=== PATIENT | male | born 1970 | race African-American/Black ===

== ENCOUNTER 2018-01-13 11:22 | Inpatient (IN) | payer MEDICAID, OTHER ==
[~2018-01-13] VITALS: Ht 172.7 cm; Wt 69.1 kg
[2018-01-13] MEDS ORDERED: MORPHINE SULFATE 4 MG/ML CPJ (NOT FOR IM USE) IV STA (12:18)
[2018-01-13 12:53] LABS: BASOPHILS % 0.5 % (0.0-2.0); EOSINOPHILS % 3.4 % (0.0-5.0); HEMATOCRIT. 32.5 % (42.0-52.0); LYMPHOCYTES % 28.8 % (20.0-50.0); MEAN CORPUSCULAR HEMOGLOBIN 23.4 pg (28.0-32.0); MEAN CORPUSCULAR VOLUME 75.9 fL (80.0-94.0); MEAN PLATELET VOLUME 9.8 fl (7.4-10.4); MONOCYTES % 11.7 % (2.0-8.0); NEUTROPHILS % 55.6 % (40.0-76.0); PLATELET 174 x1000/uL (130-400); RED BLOOD CELL COUNT 4.28 mill/uL (4.7-6.1); RED CELL DISTRIBUTION WIDTH 15.2 % (11.6-14.6)
[2018-01-13 13:04] LABS: CHLORIDE 103 mEq/L (98-107)
[2018-01-13] MEDS ORDERED: DEXTROSE 50% WATER 50ML SYRINGE IV ONE (15:15)
[2018-01-13] MEDS ORDERED: INSULIN REGULAR (HUMULIN R) 300UNITS/3ML IV ONE (15:15)
[2018-01-13] MEDS ORDERED: SODIUM POLYSTYRENE SULFONATE 15 G/60 ML BOT PO ONE (15:15)
[2018-01-13] MEDS ORDERED: ASPIRIN 81MG TABLET PO ONE (15:15)
[2018-01-13] MEDS ORDERED: LORAZEPAM 0.5MG TABLET PO PRN (17:00)
[2018-01-13] MEDS ORDERED: MAGNESIUM/ALUMINUM HYDROXIDE/SIMETHICONE 30ML UDC PO PRN (17:00)
[2018-01-13] MEDS ORDERED: IPRATROPIUM/ALBUTEROL 0.5-3(2.5)MG/3ML NEB INH PRN (17:00)
[2018-01-13] MEDS ORDERED: TRAMADOL 50MG TABLET PO PRN (17:00)
[2018-01-13] MEDS ORDERED: GUAIFENESIN 200MG/10ML SUGAR FREE UDC PO PRN (17:00)
[2018-01-13] MEDS ORDERED: DOCUSATE SODIUM 100MG CAPSULE PO PRN (17:00)
[2018-01-13] MEDS ORDERED: ONDANSETRON HCL 4MG/2ML INJ IV PRN (17:00)
[2018-01-13] MEDS ORDERED: ACETAMINOPHEN 325MG TABLET PO PRN (17:00)
[2018-01-13] MEDS ORDERED: NITROGLYCERIN 0.4MG TABLET SL SL PRN (17:00)
[2018-01-13] MEDS ORDERED: ZOLPIDEM TARTRATE 5MG TABLET PO PRN (21:00)
[2018-01-13 21:40] VITALS: BP 213/108
[2018-01-13 21:42] VITALS: BP 213/108
[2018-01-13] MEDS: CLONIDINE 0.1MG TABLET PO PRN (22:06)
[2018-01-13 23:09] VITALS: BP 181/95
[2018-01-14] VITALS: BP 173/97
[2018-01-14 00:07] LABS: CREATINE KINASE MB FRACTION 1.3 ng/mL (0.5-3.6)
[2018-01-14 02:42] VITALS: BP 162/106
[2018-01-14 03:49] VITALS: BP 172/103
[2018-01-14] MEDS: CLONIDINE 0.1MG TABLET PO PRN ×2 (04:46→14:03)
[2018-01-14] MEDS: SUCRALFATE 1 G/10 ML UDC PO SCH ×3 (06:26→18:05)
[2018-01-14 07:26] LABS: CREATINE KINASE MB FRACTION 1.2 ng/mL (0.5-3.6)
[2018-01-14] MEDS: SEVELAMER CARBONATE 800 MG TABLET PO SCH ×3 (08:46→18:05)
[2018-01-14] MEDS ORDERED: AMLODIPINE 10MG TABLET PO SCH (09:00)
[2018-01-14] MEDS ORDERED: ASPIRIN 325MG EC TABLET PO SCH (09:00)
[2018-01-14] MEDS ORDERED: FAMOTIDINE 20MG TABLET PO SCH (09:00)
[2018-01-14] MEDS ORDERED: ENOXAPARIN 30MG/0.3ML SYR SUBCUT SCH (09:00)
[2018-01-14] MEDS ORDERED: FOLIC ACID/VITAMIN B COMP W-C TABLET PO SCH (09:00)
[2018-01-14 12:00] VITALS: BP 158/95
[2018-01-14] MEDS ORDERED: HEPARIN SODIUM 1,000 UNIT/1ML VIAL IV SCH (12:45)
[2018-01-14 16:00] VITALS: BP 132/82
[2018-01-14 17:45] VITALS: BP 132/82
== END 2018-01-14 18:56 | disposition home or self-care (01) | DRG 241 ==
LOC: ER 12:00 → 6WST 15:44 → EDBEDREQTM 15:54 → EDBEDREQ 15:54 → ENRESERV 20:26
PROVIDERS: ADMIT Internal Medicine; ATTEND Internal Medicine
DX: K29.70 Gastritis, unspecified, without bleeding (principal); E11.22 Type 2 diabetes mellitus with diabetic chronic kidney disease; I13.11 Hypertensive heart and chronic kidney disease without heart failure, with stage 5 chronic kidney disease, or end stage renal disease; N18.6 End stage renal disease; E87.5 Hyperkalemia; D63.8 Anemia in other chronic diseases classified elsewhere; E78.5 Hyperlipidemia, unspecified; I16.0 Hypertensive urgency; N25.81 Secondary hyperparathyroidism of renal origin; Z91.14 Patient's other noncompliance with medication regimen; Z99.2 Dependence on renal dialysis; Z82.49 Family history of ischemic heart disease and other diseases of the circulatory system
CPT/HCPCS: 36415; 71045; 74176; 82550; 82553; 82962; 83036; 83605; 83880; 84484; 93005; 96374; 99285; J1644; J1650; J1815; J2270

== ENCOUNTER 2023-06-16 10:48 | Inpatient (IN) | payer MEDICARE, MEDICAID ==
[~2023-06-16] VITALS: Ht 172.7 cm; Wt 73.5 kg
[~2023-06-16 10:48] MED LIST: ASPI-1406 PO; CALC667T2 PO; LABE300T36 PO; LIP40 PO; MECL-127 PO; MINO2.5T2 MT
[2023-06-16 11:43] LABS: EOSINOPHILS % 3.1 % (0.0-5.0); HEMATOCRIT. 36.1 % (42.0-52.0); HEMOGLOBIN. 11.3 g/dL (14.0-18.0); LYMPHOCYTES % 53.9 % (20.0-50.0); MEAN CORPUSCULAR HGB CONC 31.4 g/dL (31.0-37.0); MEAN CORPUSCULAR VOLUME 73.2 fL (80.0-94.0); MONOCYTES % 8.9 % (2.0-8.0); NEUTROPHILS % 33.1 % (40.0-76.0); RED BLOOD CELL COUNT 4.93 mill/uL (4.7-6.1); RED CELL DISTRIBUTION WIDTH 17.3 % (11.6-14.6); WHITE BLOOD COUNT 6.2 x1000/uL (4.5-11.0)
[2023-06-16 11:57] LABS: DIFFERENTIAL COMMENT 1
[2023-06-16 12:08] LABS: ALANINE AMINOTRANSFERASE 13 IU/L (10-49); ALBUMIN 4.6 g/dL (3.2-4.8); ASPARTATE AMINOTRANSFERASE 24 IU/L (<34); BILIRUBIN TOTAL 0.9 mg/dL (0.1-1.0); CALCIUM 9.8 mg/dL (8.7-10.4); CARBON DIOXIDE 31 mEq/L (21-32); CHLORIDE 96 mEq/L (98-107); GLUCOSE 73 mg/dL (70-105); PROTEIN TOTAL 8.4 g/dL (6.0-8.3); SODIUM 137 mEq/L (136-145); UREA NITROGEN BLOOD 25 mg/dL (9-23)
[2023-06-16 12:31] LABS: CREATININE 8.4 mg/dL (0.6-1.3); TROPONIN I HIGH SENSITIVITY 101 ng/L (3.0-53)
[2023-06-16 12:43] LABS: PROTHROMBIN TIME 10.9 sec (9.6-11.0)
[2023-06-16] MEDS: ASPIRIN 325MG EC TABLET PO NR (13:59)
[2023-06-16] MEDS: ENOXAPARIN 80MG/0.8ML SYR SUBCUT SCH ×2 (14:00→20:43)
[2023-06-16 14:30] LABS: MEAN PLATELET VOLUME 9.9 fl (7.4-10.4)
[2023-06-16 14:37] LABS: PLATELET 119 x1000/uL (130-400)
[2023-06-16 15:09] LABS: TROPONIN I HIGH SENSITIVITY 128 ng/L (3.0-53)
[2023-06-16] MEDS ORDERED: ACETAMINOPHEN 325MG TABLET PO PRN ×2 (17:00)
[2023-06-16] MEDS ORDERED: ONDANSETRON HCL 4MG/2ML INJ IV PRN (17:00)
[2023-06-16] MEDS ORDERED: IPRATROPIUM/ALBUTEROL 0.5-3(2.5)MG/3ML NEB HHN PRN (17:00)
[2023-06-16] MEDS ORDERED: CLONIDINE 0.1MG TABLET PO PRN (17:00)
[2023-06-16] MEDS ORDERED: NITROGLYCERIN 0.4MG TABLET SL SL PRN (17:00)
[2023-06-16] MEDS ORDERED: FOLI1TAB87 PO (17:12)
[2023-06-16] MEDS: MINOXIDIL 2.5MG TABLET PO SCH (17:32)
[2023-06-16] MEDS: LABETALOL HCL 200MG TABLET PO SCH (17:33)
[2023-06-16] MEDS: CLONIDINE 0.2MG TABLET PO SCH (17:33)
[2023-06-16] MEDS: CALCIUM ACETATE 667MG CAPSULE PO SCH (17:33)
[2023-06-16 17:49] LABS: CHOLESTEROL 206 mg/dL (<200); HDL CHOLESTEROL 72 mg/dL (>55); IRON 110 ug/dL (65-175); LDL CHOLESTEROL 106 mg/dL (5-100); PHOSPHORUS 2.7 mg/dL (2.5-4.9); TOTAL IRON BINDING CAPACITY 112 ug/dl (250-425); TRIGLYCERIDE 97 mg/dL (0-150)
[2023-06-16] MEDS: HYDRALAZINE 20MG/ML VIAL IV NR (18:13)
[2023-06-16] MEDS ORDERED: HYDRALAZINE 20MG/ML VIAL IV PRN (19:15)
[2023-06-16 19:45] LABS: T4 FREE 1.2 ng/dL (0.89-1.76); THYROID STIMULATING HORMONE 1.08 uIU/mL (0.55-4.78)
[2023-06-16 20:00] VITALS: BP 160/71; PULSE 136; RESP 19; TEMP 98.3
[2023-06-16 20:01] LABS: D-DIMER 1.63 mg/L FEU (<0.50)
[2023-06-16] MEDS: ATORVASTATIN CALCIUM 40MG TABLET PO SCH (20:42)
[2023-06-16] MEDS: DOCUSATE SODIUM 100MG CAPSULE PO PRN (20:43)
[2023-06-16 23:29] VITALS: BP 160/71; PULSE 135; RESP 19; TEMP 98.3
[2023-06-17] VITALS (9 sets, daily range): BP systolic 138–158; BP diastolic 69–110; PULSE 80–134; RESP 14–20; TEMP 97.8–98.3
[2023-06-17 00:05] LABS: CREATINE KINASE MB FRACTION 1.4 ng/mL (0.5-3.6)
[2023-06-17] MEDS: LABETALOL HCL 100MG TABLET PO NR (00:41)
[2023-06-17 00:47] LABS: HEPATITIS B SURFACE ANTIGEN NEGATIVE (Negative); HEPATITIS C AB NON REACTIVE (Neg) (Negative)
[2023-06-17] MEDS: METOPROLOL TARTRATE 5MG/5ML VIAL IV NR (05:27)
[2023-06-17 06:58] LABS: BASOPHILS % 0.5 % (0.0-2.0); EOSINOPHILS % 2.2 % (0.0-5.0); HEMATOCRIT. 34.4 % (42.0-52.0); HEMOGLOBIN. 10.9 g/dL (14.0-18.0); LYMPHOCYTES % 26.5 % (20.0-50.0); MEAN CORPUSCULAR HGB CONC 31.6 g/dL (31.0-37.0); MEAN CORPUSCULAR VOLUME 72.9 fL (80.0-94.0); MEAN PLATELET VOLUME 11.5 fl (7.4-10.4); MONOCYTES % 14.3 % (2.0-8.0); NEUTROPHILS % 56.5 % (40.0-76.0); PLATELET 136 x1000/uL (130-400); RED BLOOD CELL COUNT 4.72 mill/uL (4.7-6.1); RED CELL DISTRIBUTION WIDTH 17.4 % (11.6-14.6); WHITE BLOOD COUNT 4.9 x1000/uL (4.5-11.0)
[2023-06-17 07:14] LABS: CALCIUM 9.9 mg/dL (8.7-10.4); CARBON DIOXIDE 30 mEq/L (21-32); CHLORIDE 95 mEq/L (98-107); CREATINE KINASE 104 IU/L (46-171); CREATINE KINASE MB FRACTION 1.3 ng/mL (0.5-3.6); GLUCOSE 102 mg/dL (70-105); PHOSPHORUS 3.8 mg/dL (2.5-4.9); POTASSIUM 4.5 mEq/L (3.5-5.1); SODIUM 136 mEq/L (136-145); UREA NITROGEN BLOOD 35 mg/dL (9-23)
[2023-06-17 07:15] LABS: DIFFERENTIAL COMMENT 1
[2023-06-17 08:01] LABS: CREATININE 10.3 mg/dL (0.6-1.3)
[2023-06-17 08:02] LABS: TROPONIN I HIGH SENSITIVITY 236 ng/L (3.0-53)
[2023-06-17] MEDS: AMLODIPINE 10MG TABLET PO SCH (08:22)
[2023-06-17] MEDS: ASPIRIN 81MG EC TABLET PO SCH (08:22)
[2023-06-17] MEDS: LABETALOL HCL 100MG TABLET PO SCH (08:23)
[2023-06-17] MEDS: PNEUMOCOCCAL 23-VAL P-SAC VAC 0.5 ML IM ONE (14:52)
[2023-06-17] MEDS: INFLUENZA VACCINE 05/PF 0.5 ML SYRINGE IM ONE (14:52)
[2023-06-17 21:56] LABS: TROPONIN I HIGH SENSITIVITY 372 ng/L (3.0-53)
[2023-06-18] VITALS (10 sets, daily range): BP systolic 118–179; BP diastolic 61–93; PULSE 64–88; RESP 12–22; TEMP 98.2–98.6
[2023-06-18 01:49] LABS: TROPONIN I HIGH SENSITIVITY 371 ng/L (3.0-53)
[2023-06-18 06:44] LABS: BASOPHILS % 0.9 % (0.0-2.0); EOSINOPHILS % 4.1 % (0.0-5.0); HEMATOCRIT. 31.7 % (42.0-52.0); HEMOGLOBIN. 10.1 g/dL (14.0-18.0); LYMPHOCYTES % 44.9 % (20.0-50.0); MEAN CORPUSCULAR HEMOGLOBIN 23.1 pg (28.0-32.0); MEAN CORPUSCULAR HGB CONC 31.8 g/dL (31.0-37.0); MEAN CORPUSCULAR VOLUME 72.5 fL (80.0-94.0); MONOCYTES % 11.7 % (2.0-8.0); NEUTROPHILS % 38.4 % (40.0-76.0); RED BLOOD CELL COUNT 4.37 mill/uL (4.7-6.1); RED CELL DISTRIBUTION WIDTH 17.4 % (11.6-14.6); WHITE BLOOD COUNT 4.4 x1000/uL (4.5-11.0)
[2023-06-18 06:54] LABS: DIFFERENTIAL COMMENT 1
[2023-06-18 07:11] LABS: CALCIUM 9.8 mg/dL (8.7-10.4); CARBON DIOXIDE 31 mEq/L (21-32); CHLORIDE 96 mEq/L (98-107); GLUCOSE 86 mg/dL (70-105); PHOSPHORUS 3.8 mg/dL (2.5-4.9); POTASSIUM 4.7 mEq/L (3.5-5.1); SODIUM 136 mEq/L (136-145); UREA NITROGEN BLOOD 49 mg/dL (9-23)
[2023-06-18 07:16] LABS: CREATININE 12.3 mg/dL (0.6-1.3)
[2023-06-18 07:45] LABS: TROPONIN I HIGH SENSITIVITY 302 ng/L (3.0-53)
[2023-06-18] MEDS: PANTOPRAZOLE SODIUM 40 MG/VIAL IV SCH (08:52)
[2023-06-18] MEDS: MINOXIDIL 2.5MG TABLET PO SCH (08:54)
[2023-06-18] MEDS ORDERED: IODIXANOL 320MG/ML 100 ML BOTTLE IV ONE (12:14)
[2023-06-18] MEDS ORDERED: DIPHENHYDRAMINE 50MG/ML VIAL ONE (12:14)
[2023-06-18] MEDS ORDERED: HEPARIN 1000 UNITS/ML 10ML ONE (12:14)
[2023-06-18] MEDS ORDERED: VERAPAMIL HCL 2.5 MG/1 ML 2ML VIAL IV ONE (12:14)
[2023-06-18] MEDS ORDERED: LIDOCAINE HCL 1% 20ML VIAL (Pyxis) INJ ONE (12:15)
[2023-06-18] MEDS ORDERED: FENTANYL CITRATE/PF 50MCG/ML 2ML VIAL ONE (12:25)
[2023-06-18] MEDS ORDERED: MIDAZOLAM HCL 2 MG/2 ML VIAL ONE (12:25)
[2023-06-18 12:39] LABS: PLATELET 101 x1000/uL (130-400)
[2023-06-18] MEDS ORDERED: ATROPINE SULFATE 1MG/10ML SYR IV PRN (13:30)
[2023-06-18] MEDS ORDERED: ACETAMINOPHEN 325MG TABLET PO PRN (13:30)
[2023-06-18] MEDS: LABETALOL HCL 300MG TABLET PO SCH (21:37)
[2023-06-18] MEDS: ENOXAPARIN 80MG/0.8ML SYR SUBCUT SCH (21:54)
[2023-06-19] VITALS: BP 168/89; PULSE 68; RESP 18; TEMP 97.8
[2023-06-19 04:00] VITALS: BP 113/51; PULSE 76; RESP 15; TEMP 98.6
[2023-06-19 07:30] LABS: BASOPHILS % 0.7 % (0.0-2.0); EOSINOPHILS % 3.8 % (0.0-5.0); HEMATOCRIT. 31.9 % (42.0-52.0); HEMOGLOBIN. 10.2 g/dL (14.0-18.0); LYMPHOCYTES % 40.7 % (20.0-50.0); MEAN CORPUSCULAR HGB CONC 31.9 g/dL (31.0-37.0); MEAN CORPUSCULAR VOLUME 72.2 fL (80.0-94.0); MONOCYTES % 13.9 % (2.0-8.0); NEUTROPHILS % 40.9 % (40.0-76.0); RED BLOOD CELL COUNT 4.42 mill/uL (4.7-6.1); RED CELL DISTRIBUTION WIDTH 17.6 % (11.6-14.6); WHITE BLOOD COUNT 4.2 x1000/uL (4.5-11.0)
[2023-06-19 07:45] LABS: CALCIUM 9.4 mg/dL (8.7-10.4); CARBON DIOXIDE 29 mEq/L (21-32); CHLORIDE 99 mEq/L (98-107); GLUCOSE 92 mg/dL (70-105); PHOSPHORUS 3.7 mg/dL (2.5-4.9); POTASSIUM 4.9 mEq/L (3.5-5.1); SODIUM 135 mEq/L (136-145); UREA NITROGEN BLOOD 34 mg/dL (9-23)
[2023-06-19 07:58] LABS: CREATININE 10.9 mg/dL (0.6-1.3)
[2023-06-19 08:00] VITALS: BP 144/77; PULSE 79; RESP 16; TEMP 98.7
[2023-06-19 08:19] LABS: DIFFERENTIAL COMMENT 1
[2023-06-19] MEDS ORDERED: AMLO10TA80 PO (11:34)
[2023-06-19] MEDS ORDERED: CLON0.2T PO (11:34)
[2023-06-19] MEDS ORDERED: MINO2.5T19 PO (11:34)
[2023-06-19 11:52] VITALS: BP 145/65; PULSE 74; TEMP 98.9; O2SAT 97
[2023-06-19 12:00] VITALS: BP 145/65; PULSE 74; RESP 17; TEMP 98.9
[2023-06-19 16:00] VITALS: BP 140/68; PULSE 80; RESP 18; TEMP 98.8
[2023-06-19 23:37] LABS: MEAN PLATELET VOLUME 9.8 fl (7.4-10.4); PLATELET 107 x1000/uL (130-400)
== END 2023-06-19 17:50 | disposition home health service (06) | DRG 280 ==
LOC: ER 10:48 → 3WST 13:58 → EDBEDREQTM 14:03 → EDBEDREQ 14:03
PROVIDERS: ADMIT Internal Medicine; ATTEND Internal Medicine
PROC: 5A1D70Z Performance of Urinary Filtration, Intermittent, Less than 6 Hours Per Day (ICD-10-PCS; 2023-06-17)
PROC: 4A023N7 Measurement of Cardiac Sampling and Pressure, Left Heart, Percutaneous Approach (ICD-10-PCS; principal; 2023-06-18)
PROC: B211YZZ Fluoroscopy of Multiple Coronary Arteries using Other Contrast (ICD-10-PCS; 2023-06-18)
DX: I25.110 Atherosclerotic heart disease of native coronary artery with unstable angina pectoris (principal); I21.A1 Myocardial infarction type 2; I50.43 Acute on chronic combined systolic (congestive) and diastolic (congestive) heart failure; N18.6 End stage renal disease; I13.2 Hypertensive heart and chronic kidney disease with heart failure and with stage 5 chronic kidney disease, or end stage renal disease; D63.1 Anemia in chronic kidney disease; D69.6 Thrombocytopenia, unspecified; D63.8 Anemia in other chronic diseases classified elsewhere; E83.39 Other disorders of phosphorus metabolism; I1A.0 Resistant hypertension; R49.0 Dysphonia; E78.5 Hyperlipidemia, unspecified; Z86.73 Personal history of transient ischemic attack (TIA), and cerebral infarction without residual deficits; Z99.2 Dependence on renal dialysis; Z56.0 Unemployment, unspecified
CPT/HCPCS: 36415; 71045; 80048; 80053; 80061; 82550; 82553; 82728; 83036; 83540; 83550; 83735; 83880; 84100; 84145; 84439; 84443; 84484; 85025; 85379; 86705; 87340; 90686; 90732; 90935; 93005; 93306; 93458; 99291; C1769; C1887; C1893; C9113; J0360; J1200; J1644; J1650; J2250; J3010; J3490; Q9967